=== PATIENT | female | born 1985 | race American Indian/Alaskan Native ===

== ENCOUNTER 2021-10-27 05:18 | Emergency (ER) | payer OTHER ==
--- NOTE | 2021-10-27 07:19 | Ultrasound Report ---
US OB >= 14 weeks Fetus INDICATION / CLINICAL INFORMATION: pelvic pain unknown last menstrual period. Lower abdominal back pa in. Evaluation for dating secondary to unknown last menstrual period. COMPARISON: None available. TECHNIQUE: Using a transcutaneous probe, multiple grayscale, color Doppler, and spectral Doppler imag es of the uterus and fetus were captured and stored. FINDINGS: Single breech fetus demonstrated with heart rate of 145 bpm. Amniotic fluid is grossly normal in amount. Grade 0 posterior placenta is demonstrated. Maternal cervix measures 4.2 cm. Biparietal Diameter = 2.4 cm = 14.1 weeks, days Head Circumference = 8.7 cm = 13, 6 weeks, days Abdominal Circumference = 7.8 cm = 14.2 weeks, days Femur Length = 1.5 cm = 14.4 weeks, days Average Ultrasound Age (AUA) = 14.2 weeks, days. EDC 04/25/2022 Estimated weight = not calculated. Incidental note is made of 3 small simple cyst within the right ovary. The right ovary measures 2.3 x 4.5 x 3.4 cm. Color flow present.. IMPRESSION: 1. Single living fetus with estimated gestational age of 14 weeks 2 days. 2. Small simple right ovarian cysts. Signer Name: Richy Lowry II, MD Signed: 10/27/2021 7:14 AM Workstation Name: [id number]
--- NOTE | 2021-10-27 10:37 | Emergency Department Report ---
ED HPI - General Chief complaint: Urogenital-Female Stated complaint: AND IN PAIN Time Seen by Provider: 10/27/21 09:28 Source: patient Mode of arrival: Ambulatory Limitations: No Limitations - History of Present Illness Initial comments: 36-year-old female with history DM and who presents with lower back pain, recent weight gain and fatigue that is been going on for about couple of months progressively getting worse. Because of the above symptoms patient used the home test and noticed to be positive few days ago. Patient has not been taking any vitamin or medical care. Patient denies any fever or chills. Patient reports that her first was not detected until 2 months into the . She noted irregular menses and could not remember the LMP. She has a son that is 5 years old. She also reports history or right ovarian cyst. No other modifying or associated factors reported. - Related Data Previous Rx's Medication Instructions Recorded Last Taken Type Vit No.179/Iron/Folic 1 each PO DAILY 180 Days #180 tab 10/27/21 Unkno wn Rx [ Tablet] NS Allergies Allergy/AdvReac Type Severity Reaction Status Date / Time No Known Allergies Allergy Unverified 10/27/21 05:43 ED Review of Systems ROS: Stated complaint: AND IN PAIN Other details as noted in HPI Comment: All other systems reviewed and negative Endocrine: unexplained weight gain, other (fatigue) Gastrointestinal: abdominal pain (lower abdominal pain ), nausea. denies: vomiting Musculoskeletal: back pain ED Past Medical Hx - Past Medical History Previous Medical History?: Yes Hx Diabetes: Yes - Surgical History Past Surgical History?: No - Social History Smoking Status: Never Smoker Substance Use Type: None - Medications Home Medications: Home Medications Medication Instructions Recorded Confirmed Last Taken Type Vit No.179/Iron/Folic 1 each PO DAILY 180 Days #180 tab 10/27/21 Unknown Rx [ Tablet] NS ED Physical Exam - General Limitations: No Limitations General appearance: alert, in no apparent distress - Head Head exam: Present: normal inspection - Eye Eye exam: Present: normal appearance Pupils: Present: normal accommodation - ENT ENT exam: Present: normal exam, normal orophraynx, mucous membranes moist - Neck Neck exam: Present: normal inspection, full ROM. Absent: tenderness - Respiratory Respiratory exam: Present: normal lung sounds bilaterally. Absent: respiratory distress, accessory muscle use - Cardiovascular Cardiovascular Exam: Present: regular rate, normal rhythm, normal heart sounds - GI/Abdominal GI/Abdominal exam: Present: soft, normal bowel sounds. Absent: distended, tenderness - Extremities Exam Extremities exam: Present: normal inspection, full ROM, normal capillary refill. Absent: tenderness, pedal edema - Back Exam Back exam: Absent: tenderness - Neurological Exam Neurological exam: Present: alert, oriented X3 - Psychiatric Psychiatric exam: Present: normal affect, normal mood ED Course Vital Signs 10/27/21 10/27/21 05:44 08:35 Temperature 98.4 F Pulse Rate 93 H Respiratory 18 Rate Blood Pressure 128/71 O2 Sat by Pulse 97 100 Oximetry ED Medical Decision Making - Lab Data Result diagrams: 10/27/21 10:58 10/27/21 10:58 - Radiology Data ob/ US noted with FINDINGS: Single breech fetus demonstrated with heart rate of 145 bpm. Amniotic fluid is grossly normal in amount. Grade 0 posterior placenta is demonstrated. Maternal cervix measures 4.2 cm. Biparietal Diameter = 2.4 cm = 14.1 weeks, days Head Circumference = 8.7 cm = 13, 6 weeks, days Abdominal Circumference = 7.8 cm = 14.2 weeks, days Femur Length = 1.5 cm = 14.4 weeks, days Average Ultrasound Age (AUA) = 14.2 weeks, days. EDC 04/25/2022 Estimated weight = not calculated. Incidental note is made of 3 small simple cyst within the right ovary. The right ovary measures 2.3 x 4.5 x 3.4 cm. Color flow present.. IMPRESSION: 1. Single living fetus with estimated gestational age of 14 weeks 2 days. 2. Small simple right ovarian cysts. - Medical Decision Making here with unexplained weight gain fatigue and positive home test--- this patient is likely so we will go ahead and confirm with syndrome quant and ultrasound for dates--we will also order routine labs CBC, CMP and urinalysis for any infectious of electrolyte abnormality. We will also order thyroid profile considering tiredness/fatigue that patient mentioned. US noted with single living 14 weeks 2 days gestation with small right ovarian cyst-- which can explains the above symptoms Labs reviewed and noted to be unremarkable and appropriate level of serum quantitative -- so patient reassured and d/c home on vitamin and close follow up with [facility] Critical care attestation.: If time is entered above; I have spent that time in minutes in the direct care of this critically ill patient, excluding procedure time. ED Disposition Clinical Impression: Right ovarian cyst Qualifiers: Weeks of gestation: 14 weeks Qualified Code(s): Z3A.14 - 14 weeks gestation of Fatigue Qualifiers: Fatigue type: -related Trimester: second trimester Qualified Code(s): O26.812 - related exhaustion and fatigue, second trimester Disposition: 01 HOME / SELF CARE / HOMELESS Is pt being admited?: No Does the pt Need Aspirin: No Condition: Stable Instructions: How a Baby Grows During , Ovarian Cyst, [id number], Eating Plan for Women, Preventing Injuries During , [id number], Second Trimester of , [id number], Heartburn During Pr egnancy, [id number] Additional Instructions: Follow the printed instruction above to continue to help your symptoms during It is very important that you call to schedule follow-up with Dr. Saint Rdz in the next 3-5 days to establish your and continue treatment Please start taking your vitamins immediately to prevent complication Please do not hesitate to call or return to emergency room if your symptoms worsen It is okay to take Tylenol every 6-8 hours as needed for minor to moderate pain Prescriptions: Vit No.179/Iron/Folic [ Tablet] 1 each PO DAILY 180 Days #180 tab NS Time of Disposition: 14:32
[2021-10-27 12:15] LABS: Alanine Aminotransferase 20 units/L (7-56); Albumin 3.6 g/dL (3.9-5); Blood Urea Nitrogen 11 mg/dL (7-17); Calcium 8.9 mg/dL (8.4-10.2); Hemolysis Index 5
[2021-10-27 12:20] LABS: Basophils % (Auto) 0.2 % (0.0-1.8); Eosinophils % (Auto) 0.3 % (0.0-4.3); Hematocrit 35.9 % (30.3-42.9); Lymphocytes # (Auto) 1.5 K/mm3 (1.2-5.4); Lymphocytes % (Auto) 15.1 % (13.4-35.0); Mean Corpuscular HGB Conc 33 % (30-34); Mean Corpuscular Volume 92 fl (79-97); Monocytes # (Auto) 0.7 K/mm3 (0.0-0.8); Platelet Count 142 K/mm3 (140-440)
[2021-10-27 12:23] LABS: INR 0.92 (0.87-1.13); Partial Thromboplastin Time 26.4 Sec. (24.2-36.6)
[2021-10-27 13:03] LABS: BUN/Creatinine Ratio 18
[2021-10-27 14:54] LABS: Mucus,Urine 3+ /HPF
[2021-10-27 14:59] LABS: Bilirubin,Urine Negative (Negative); Color,Urine Straw (Yellow)
[2021-10-27 15:00] LABS: Blood,Urine Negative (Negative); Protein,Urine <30 mg dL mg/dL (Negative); Urobilinogen,Urine < 2.0 mg/dL (<2.0)
[2021-10-27 15:05] VITALS: BP 120/68
== END 2021-10-27 15:05 | disposition home or self-care (01) ==
LOC: ED 05:18
DX: O26.812 Pregnancy related exhaustion and fatigue, second trimester (principal); Z3A.14 14 weeks gestation of pregnancy; E11.9 Type 2 diabetes mellitus without complications
CPT/HCPCS: 36415; 76805; 80053; 81001; 84702; 85025; 85610; 85730; 87086; 99284